=== PATIENT | female | born 1975 | race African-American/Black ===

== ENCOUNTER 2017-05-06 11:51 | Inpatient (IN) | payer MEDICARE, MEDICAID ==
[~2017-05-06] VITALS: Ht 160 cm; Wt 125.2 kg
[~2017-05-06 11:51] MED LIST: INSU3INS6 SUBCUT; METF500T4 PO
[2017-05-06] MEDS ORDERED: NITROGLYCERIN OINT 1GM/INCH UDPKT TD STA (12:34)
[2017-05-06] MEDS ORDERED: SODIUM CHLORIDE 0.9% 2,000 ML IV ONE (12:34)
[2017-05-06] MEDS ORDERED: ONDANSETRON HCL 4MG/2ML VIAL IV STA (12:34)
[2017-05-06] MEDS ORDERED: MORPHINE SULFATE 4 MG/ML CPJ (NOT FOR IM USE) IV STA (12:34)
[2017-05-06] MEDS ORDERED: ASPIRIN 325MG EC TABLET PO ONE (12:45)
[2017-05-06 12:48] LABS: BASOPHILS % 0.8 % (0.0-2.0); EOSINOPHILS % 2.7 % (0.0-5.0); HEMATOCRIT. 45.1 % (36.0-48.0); HEMOGLOBIN. 15.6 g/dL (12.0-16.0); LYMPHOCYTES % 37.7 % (20.0-50.0); MEAN CORPUSCULAR VOLUME 86.9 fL (81.0-99.0); MEAN PLATELET VOLUME 9.9 fl (7.4-10.4); MONOCYTES % 5.2 % (2.0-8.0); NEUTROPHILS % 53.6 % (40.0-76.0); PLATELET 253 x1000/uL (130-400); RED BLOOD CELL COUNT 5.19 mill/uL (4.2-5.4); RED CELL DISTRIBUTION WIDTH 12.9 % (11.6-14.6)
[2017-05-06 13:06] LABS: BETA HYDROXYBUTYRATE 0.2 mMol/L (0.0-0.3); CARBON DIOXIDE 27 mEq/L (21-32); CHLORIDE 100 mEq/L (98-107); TROPONIN I < 0.02 ng/mL (0.00-0.04)
[2017-05-06 13:10] LABS: HCG SCREEN NEGATIVE
[2017-05-06] MEDS: MORPHINE SULFATE 10 MG/ML CPJ IV NR ×2 (13:38→13:43)
[2017-05-06] MEDS ORDERED: INSULIN REGULAR (HUMULIN R) 300UNITS/3ML SUBCUT NR (16:15)
[2017-05-06] MEDS ORDERED: NA PHOS,M-B/NA PHOS,DI-BA ENEMA 118ML PR PRN (16:45)
[2017-05-06] MEDS ORDERED: HYDROCODONE/APAP 7.5/325MG 1 TAB TABLET PO PRN (16:45)
[2017-05-06] MEDS ORDERED: ACETAMINOPHEN 325MG TABLET PO PRN (16:45)
[2017-05-06] MEDS ORDERED: IPRATROPIUM/ALBUTEROL 0.5-3(2.5)MG/3ML NEB INH PRN (16:45)
[2017-05-06] MEDS ORDERED: DIPHENHYDRAMINE 50MG/ML VIAL IV PRN (16:45)
[2017-05-06] MEDS ORDERED: LORAZEPAM 2MG/ML CPJ IV PRN (16:45)
[2017-05-06] MEDS ORDERED: GUAIFENESIN 200MG/10ML SUGAR FREE UDC PO PRN (16:45)
[2017-05-06] MEDS ORDERED: DOCUSATE SODIUM 100MG CAPSULE PO PRN (16:45)
[2017-05-06] MEDS ORDERED: HYDROMORPHONE HCL/PF 2MG/ML CPJ IV PRN (16:45)
[2017-05-06] MEDS ORDERED: ONDANSETRON HCL 4MG/2ML VIAL IV PRN (16:45)
[2017-05-06] MEDS ORDERED: MAGNESIUM/ALUMINUM HYDROXIDE/SIMETHICONE 30ML UDC PO PRN (16:45)
[2017-05-06] MEDS ORDERED: CLONIDINE 0.1MG TABLET PO PRN (16:45)
[2017-05-06 17:45] VITALS: BP 113/71
[2017-05-06] MEDS ORDERED: DEXTROSE 50% WATER 50ML SYRINGE IV PRN (18:15)
[2017-05-06] MEDS: INSULIN LISPRO 100 UNITS/ML SUBCUT SCH ×2 (18:54→20:49)
[2017-05-06 19:30] VITALS: BP 108/64
[2017-05-06 19:31] LABS: CARBON DIOXIDE 28 mEq/L (21-32); CHLORIDE 104 mEq/L (98-107)
[2017-05-06 20:00] VITALS: BP 108/64
[2017-05-06] MEDS: SODIUM CHLORIDE 0.45% 1,000 ML IV SCH (20:49)
[2017-05-06] MEDS: ENOXAPARIN 30MG/0.3ML SYR SUBCUT SCH (20:50)
[2017-05-06] MEDS: BLOOD SUGAR DIAGNOSTIC STRIP TEST SCH (20:50)
[2017-05-07] VITALS: BP 106/76
[2017-05-07 04:00] VITALS: BP 118/71
[2017-05-07] MEDS: INSULIN LISPRO 100 UNITS/ML SUBCUT SCH ×4 (06:50→21:33)
[2017-05-07] MEDS: BLOOD SUGAR DIAGNOSTIC STRIP TEST SCH ×4 (06:51→21:31)
[2017-05-07 08:00] VITALS: BP 116/78
[2017-05-07] MEDS: ENOXAPARIN 30MG/0.3ML SYR SUBCUT SCH (08:33)
[2017-05-07 08:35] LABS: BASOPHILS % 0.4 % (0.0-2.0); EOSINOPHILS % 2.6 % (0.0-5.0); HEMATOCRIT. 42.6 % (36.0-48.0); HEMOGLOBIN. 14.5 g/dL (12.0-16.0); LYMPHOCYTES % 30.7 % (20.0-50.0); MEAN CORPUSCULAR HEMOGLOBIN 29.6 pg (28.0-32.0); MEAN PLATELET VOLUME 9.8 fl (7.4-10.4); MONOCYTES % 4.1 % (2.0-8.0); NEUTROPHILS % 62.2 % (40.0-76.0); PLATELET 247 x1000/uL (130-400); RED CELL DISTRIBUTION WIDTH 12.9 % (11.6-14.6)
[2017-05-07] MEDS ORDERED: REGADENOSON 0.4 MG/5 ML IV ONE ×2 (08:45→11:31)
[2017-05-07] MEDS ORDERED: ASPIRIN 81MG EC TABLET PO SCH (09:00)
[2017-05-07 09:32] LABS: CARBON DIOXIDE 27 mEq/L (21-32); CHLORIDE 102 mEq/L (98-107); HDL CHOLESTEROL 37 mg/dL (40-59); LDL CHOLESTEROL 165 mg/dL (5-100)
[2017-05-07 09:33] LABS: TROPONIN I < 0.02 ng/mL (0.00-0.04)
[2017-05-07 11:05] LABS: T4 FREE 1.06 ng/dL (0.76-1.46)
[2017-05-07] MEDS: SODIUM CHLORIDE 0.45% 1,000 ML IV SCH (12:42)
[2017-05-07 13:40] VITALS: BP 126/82
[2017-05-07] MEDS: CLOPIDOGREL 75MG TABLET PO SCH (13:54)
[2017-05-07 16:00] VITALS: BP 104/66
[2017-05-07 16:12] LABS: CREATINE KINASE 72 IU/L (26-192); CREATINE KINASE MB FRACTION < 0.5 ng/mL (0.5-3.6); TROPONIN I < 0.02 ng/mL (0.00-0.04)
[2017-05-07 20:00] VITALS: BP 114/65
[2017-05-07] MEDS: ENOXAPARIN 40MG/0.4ML SYR SUBCUT SCH (21:00)
[2017-05-08] VITALS: BP 119/75
[2017-05-08 00:13] LABS: CREATINE KINASE 82 IU/L (26-192); CREATINE KINASE MB FRACTION < 0.5 ng/mL (0.5-3.6); TROPONIN I < 0.02 ng/mL (0.00-0.04)
[2017-05-08 04:00] VITALS: BP 125/85
[2017-05-08] MEDS: BLOOD SUGAR DIAGNOSTIC STRIP TEST SCH ×2 (06:56→12:40)
[2017-05-08 07:42] LABS: CREATINE KINASE 64 IU/L (26-192); CREATINE KINASE MB FRACTION 0.7 ng/mL (0.5-3.6); TROPONIN I < 0.02 ng/mL (0.00-0.04)
[2017-05-08 08:00] VITALS: BP 135/87
[2017-05-08] MEDS: CLOPIDOGREL 75MG TABLET PO SCH (08:49)
[2017-05-08] MEDS: ENOXAPARIN 40MG/0.4ML SYR SUBCUT SCH (08:52)
[2017-05-08] MEDS: INSULIN LISPRO 100 UNITS/ML SUBCUT SCH ×2 (08:57→14:07)
[2017-05-08] MEDS ORDERED: ASPIRIN 81MG TABLET PO SCH (09:00)
[2017-05-08 12:00] VITALS: BP 112/74
== END 2017-05-08 15:10 | disposition home or self-care (01) | DRG 392 ==
LOC: ER 12:46 → 7WST 16:18 → ENRESERV 16:57
PROVIDERS: ADMIT Internal Medicine; ATTEND Internal Medicine
DX: K21.9 Gastro-esophageal reflux disease without esophagitis (principal); E11.65 Type 2 diabetes mellitus with hyperglycemia; Z68.42 Body mass index [BMI] 45.0-49.9, adult; E86.0 Dehydration; E78.00 Pure hypercholesterolemia, unspecified; E78.5 Hyperlipidemia, unspecified; E66.9 Obesity, unspecified; G89.29 Other chronic pain; M54.5 Low back pain; I10 Essential (primary) hypertension; Z79.4 Long term (current) use of insulin; Z82.49 Family history of ischemic heart disease and other diseases of the circulatory system; Z83.3 Family history of diabetes mellitus; Z90.710 Acquired absence of both cervix and uterus; Z79.84 Long term (current) use of oral hypoglycemic drugs
CPT/HCPCS: 36415; 71010; 78452; 80048; 80053; 80061; 82010; 82550; 82553; 82962; 83036; 83690; 83880; 84439; 84443; 84484; 84703; 85025; 85379; 93005; 93017; 93306; 93970; 96361; 96372; 96374; 99285; A9500; J1650; J1815; J2270; J2405; J2785; J7030

== ENCOUNTER 2017-06-06 23:33 | Emergency (ER) | payer MEDICARE, MEDICAID ==
[~2017-06-06] VITALS: Ht 160 cm; Wt 121.0 kg
[2017-06-07] MEDS ORDERED: HYDROCODONE/ACETAMINOPHEN 5/325MG TABLET PO ONE (04:15)
[2017-06-07 05:05] VITALS: BP 133/71
== END 2017-06-07 05:06 | disposition home or self-care (01) ==
LOC: ER 23:33
DX: R10.33 Periumbilical pain (principal); M54.5 Low back pain; E78.00 Pure hypercholesterolemia, unspecified; E11.9 Type 2 diabetes mellitus without complications; Z90.710 Acquired absence of both cervix and uterus; Z79.4 Long term (current) use of insulin; W01.0XXA Fall on same level from slipping, tripping and stumbling without subsequent striking against object, initial encounter; Y93.89 Activity, other specified; Y92.018 Other place in single-family (private) house as the place of occurrence of the external cause
CPT/HCPCS: 99283

== ENCOUNTER 2020-07-04 11:15 | Emergency (ER) | payer MEDICARE, MEDICAID ==
[~2020-07-04] VITALS: Ht 160 cm; Wt 109.0 kg
[~2020-07-04 11:15] MED LIST changes: +METF-414 PO; -METF500T4 PO
[2020-07-04] MEDS ORDERED: IBUPROFEN 600MG TABLET PO ONE (11:45)
[2020-07-04] MEDS ORDERED: HYDROCODONE/ACETAMINOPHEN 5/325MG TABLET PO ONE (13:00)
[2020-07-04 14:06] VITALS: BP 151/95
== END 2020-07-04 14:06 | disposition home or self-care (01) ==
LOC: ER 11:21
DX: S82.832A Other fracture of upper and lower end of left fibula, initial encounter for closed fracture (principal); M17.12 Unilateral primary osteoarthritis, left knee; E78.00 Pure hypercholesterolemia, unspecified; E11.9 Type 2 diabetes mellitus without complications; Z90.710 Acquired absence of both cervix and uterus; Z79.84 Long term (current) use of oral hypoglycemic drugs; Z98.890 Other specified postprocedural states; W01.0XXA Fall on same level from slipping, tripping and stumbling without subsequent striking against object, initial encounter; Y93.89 Activity, other specified; Y92.018 Other place in single-family (private) house as the place of occurrence of the external cause
CPT/HCPCS: 29505; 73562; 73610; 73620; 99284

== ENCOUNTER 2024-08-28 10:15 | Emergency (ER) | payer MEDICARE, MEDICAID ==
[~2024-08-28] VITALS: Ht 160 cm; Wt 100.0 kg
[2024-08-28 10:16] VITALS: O2SAT 100
[2024-08-28 10:52] LABS: CARBON DIOXIDE 28 mEq/L (21-32); CHLORIDE 99 mEq/L (98-107); POTASSIUM 3.6 mEq/L (3.5-5.1); SODIUM 136 mEq/L (136-145)
[2024-08-28 10:57] LABS: CREATININE 0.9 mg/dL (0.6-1.0)
[2024-08-28 10:58] LABS: UREA NITROGEN BLOOD 11 mg/dL (9-23)
[2024-08-28 10:59] LABS: ALANINE AMINOTRANSFERASE 48 IU/L (10-49); ASPARTATE AMINOTRANSFERASE 26 IU/L (<34)
[2024-08-28 11:00] LABS: BETA HYDROXYBUTYRATE 0.1 mMol/L (0.0-0.3); BILIRUBIN DIRECT 0.1 mg/dL (<=3.0); BILIRUBIN TOTAL 0.4 mg/dL (0.1-1.0); PROTEIN TOTAL 6.9 g/dL (6.0-8.3)
[2024-08-28 11:08] LABS: BASOPHILS % 0.2 % (0.0-2.0); EOSINOPHILS % 1.3 % (0.0-5.0); ETHANOL BLOOD < 10 mg/dL (<10); HEMATOCRIT. 41.4 % (36.0-48.0); LYMPHOCYTES % 35.7 % (20.0-50.0); MEAN CORPUSCULAR HEMOGLOBIN 29.8 pg (28.0-32.0); MEAN CORPUSCULAR HGB CONC 33.9 g/dL (31.0-37.0); MEAN PLATELET VOLUME 9.6 fl (7.4-10.4); MONOCYTES % 8.6 % (2.0-8.0); NEUTROPHILS % 54.2 % (40.0-76.0); PLATELET 243 x1000/uL (130-400); RED CELL DISTRIBUTION WIDTH 12.5 % (11.6-14.6); TROPONIN I HIGH SENSITIVITY < 4 ng/L (3.0-34); WHITE BLOOD COUNT 6.3 x1000/uL (4.5-11.0)
[2024-08-28 11:09] LABS: GLUCOSE 429 mg/dL (70-105)
[2024-08-28] MEDS: ONDANSETRON HCL 4MG/2ML INJ IV STA (11:23)
[2024-08-28] MEDS: SODIUM CHLORIDE 0.9% 1,000 ML IV ONE (11:23)
[2024-08-28] MEDS: INSULIN REGULAR (HUMULIN R) 1000UNITS/10ML VIAL SUBCUT ONE (12:21)
[2024-08-28 13:34] VITALS: TEMP 37
[2024-08-28 14:00] VITALS: BP 166/92; PULSE 71; RESP 25; O2SAT 93
[2024-08-28] MEDS ORDERED: LEVETIRACETAM 1000MG PREMIX 100 ML IV SCH (21:00)
== END 2024-08-28 15:00 | disposition short-term general hospital (02) ==
LOC: ER 10:31
DX: I60.9 Nontraumatic subarachnoid hemorrhage, unspecified (principal); R42 Dizziness and giddiness; E11.65 Type 2 diabetes mellitus with hyperglycemia; E78.00 Pure hypercholesterolemia, unspecified; I10 Essential (primary) hypertension; Z79.84 Long term (current) use of oral hypoglycemic drugs; Z90.710 Acquired absence of both cervix and uterus; Z91.148 Patient's other noncompliance with medication regimen for other reason
CPT/HCPCS: 80076; 80048; 82010; 80320; 82962; 83690; 85025; 84484; 36415; 71045; 70450; 74176; 93005; 96361; 96374; 99291; J1815; J2405; J7030; G0480